=== PATIENT | male | born 1945 | race Caucasian/White ===

== ENCOUNTER 2023-02-15 17:29 | Emergency (ER) | payer MEDICARE ==
[~2023-02-15] VITALS: Ht 177.8 cm; Wt 59.0 kg
[~2023-02-15 17:29] MED LIST: ASPI325; Lisinopril2.5 MG; METO50ER; SIMV10; [UNRECOGNIZED DRUG - REMARK]
[2023-02-15 18:16] LABS: BASOPHILS ABSOLUTE AUTO 0.04 K/mm3 (0.00-0.23); BASOPHILS PERCENT AUTO 1 % (0-2); EOSINOPHILS ABSOLUTE AUTO 0.09 K/mm3 (0.00-0.68); EOSINOPHILS PERCENT AUTO 2 % (0-6); Hematocrit 37.1 % (37.0-53.0); Hemoglobin 12.7 g/dL (13.5-17.5); IMMATURE GRAN ABSOLUTE AUTO 0.01 K/mm3 (0.00-0.10); IMMATURE GRAN PERCENT AUTO 0 % (0-1); LYMPHOCYTES ABSOLUTE AUTO 1.86 K/mm3 (0.84-5.20); LYMPHOCYTES PERCENT AUTO 31 % (21-46); MONOCYTES ABSOLUTE AUTO 0.92 K/mm3 (0.16-1.47); MONOCYTES PERCENT AUTO 15 % (4-13); Mean Corpuscular HGB 33.3 pg (26.0-34.0); Mean Corpuscular HGB Conc 34.2 g/dL (31.5-36.5); Mean Corpuscular Volume 97 fL (80-100); Mean Platelet Volume 10.3 fL (9.1-12.4); NEUTROPHILS ABSOLUTE AUTO 3.06 K/mm3 (1.96-9.15); NEUTROPHILS PERCENT AUTO 51 % (41-73); Platelet Count 282 K/mm3 (150-400); RDW Coefficient Variation 11.9 % (11.7-14.2); RDW Standard Deviation 42.4 fL (35.1-46.3); Red Blood Cell Count 3.81 M/mm3 (4.30-5.90); White Blood Cell Count 5.98 K/mm3 (4.00-11.30)
[2023-02-15 18:28] LABS: Albumin, Blood 3.2 g/dL (3.4-5.0); Albumin/Globulin Ratio 0.7 (0.8-1.8); Bilirubin, Total 0.3 mg/dL (0.1-1.0); Bun/Creatinine Ratio 18.6 (12.0-20.0); Calcium, Blood 8.8 mg/dL (8.5-10.1); Creatinine, Blood 1.29 mg/dL (0.60-1.20); Globulin, Blood 4.3 g/dL (2.2-4.0); Potassium, Blood 4.6 mmol/L (3.5-5.5); Total Protein, Blood 7.5 g/dL (6.4-8.2)
[2023-02-15] MEDS ORDERED: COMBIVENT RESPIM4 G1 INH (18:51)
== END 2023-02-15 19:29 | disposition home or self-care (01) ==
LOC: ER 17:29
PROVIDERS: Emergency Medicine
DX: J44.9 Chronic obstructive pulmonary disease, unspecified (principal); J06.9 Acute upper respiratory infection, unspecified; Z85.118 Personal history of other malignant neoplasm of bronchus and lung; Z90.2 Acquired absence of lung [part of]; Z88.0 Allergy status to penicillin; Z79.899 Other long term (current) drug therapy; Z79.82 Long term (current) use of aspirin; Z87.891 Personal history of nicotine dependence
CPT/HCPCS: 71045; 80053; 84484; 85025; 93005; 93010; 99284-25

== ENCOUNTER → 2023-08-27 | Outpatient (CLI) | payer MEDICARE ==
[~2023-08-27] MED LIST changes: +COMBIVENT RESPIM4 G1 INH
[2023-08-27 18:51] LABS: BASOPHILS ABSOLUTE AUTO 0.04 K/mm3 (0.00-0.23); BASOPHILS PERCENT AUTO 1 % (0-2); EOSINOPHILS ABSOLUTE AUTO 0.12 K/mm3 (0.00-0.68); EOSINOPHILS PERCENT AUTO 3 % (0-6); Hematocrit 38.2 % (37.0-53.0); Hemoglobin 13.2 g/dL (13.5-17.5); IMMATURE GRAN ABSOLUTE AUTO 0.01 K/mm3 (0.00-0.10); IMMATURE GRAN PERCENT AUTO 0 % (0-1); LYMPHOCYTES ABSOLUTE AUTO 1.27 K/mm3 (0.84-5.20); LYMPHOCYTES PERCENT AUTO 29 % (21-46); MONOCYTES ABSOLUTE AUTO 0.66 K/mm3 (0.16-1.47); MONOCYTES PERCENT AUTO 15 % (4-13); Mean Corpuscular HGB 34.5 pg (26.0-34.0); Mean Corpuscular HGB Conc 34.6 g/dL (31.5-36.5); Mean Corpuscular Volume 100 fL (80-100); Mean Platelet Volume 11.6 fL (9.1-12.4); NEUTROPHILS ABSOLUTE AUTO 2.24 K/mm3 (1.96-9.15); NEUTROPHILS PERCENT AUTO 52 % (41-73); Platelet Count 174 K/mm3 (150-400); RDW Coefficient Variation 11.8 % (11.7-14.2); Red Blood Cell Count 3.83 M/mm3 (4.30-5.90); White Blood Cell Count 4.34 K/mm3 (4.00-11.30)
[2023-08-27 19:55] LABS: Alanine Aminotransfer (ALT/SGP 28 U/L (12-78); Albumin, Blood 3.9 g/dL (3.4-5.0); Alk Phos 70 U/L (50-136); Anion Gap 4 mmol/L (6-16); Aspartate Aminotrans (AST/SGOT 20 U/L (12-37); Bilirubin, Total 0.6 mg/dL (0.1-1.0); Blood Urea Nitrogen 13 mg/dL (8-24); CHOL/HDL RATIO 2.1; CO2, Blood 30 mmol/L (21-32); Calcium, Blood 9.2 mg/dL (8.5-10.1); Chloride, Blood 104 mmol/L (98-108); Cholesterol 125 mg/dL (50-200); Globulin, Blood 3.9 g/dL (2.2-4.0); Glucose, Blood 96 mg/dL (70-99); HDL Cholesterol 59 mg/dL (>39); LDL/HDL RATIO 0.8; Low Density Lipoprotein Chol 50 mg/dL (0-110); Potassium, Blood 4.3 mmol/L (3.5-5.5); Sodium, Blood 138 mmol/L (136-145); Total Protein, Blood 7.8 g/dL (6.4-8.2); Triglycerides 80 mg/dL (30-160); Very Low Density Lipoprot Chol 16 mg/dL (6-32)
[2023-08-27 20:05] LABS: Bun/Creatinine Ratio 10.2 (12.0-20.0); Creatinine, Blood 1.27 mg/dL (0.60-1.20); Glomerular Filtration Rate 59 (60-)
== END ==
LOC: LAB SHORT 16:45 → LAB EV 16:45
PROVIDERS: Student in an Organized Health Care Education/Training Program
DX: E78.5 Hyperlipidemia, unspecified (principal); B35.1 Tinea unguium; E03.9 Hypothyroidism, unspecified
CPT/HCPCS: 80053; 80061; 84443; 85025

== ENCOUNTER 2025-04-19 17:07 | Inpatient (IN) | payer MEDICARE ==
[~2025-04-19] VITALS: Ht 177.8 cm; Wt 60.5 kg
[2025-04-19] MEDS ORDERED: NS 1,000 ML IV SCH (17:25)
[2025-04-19 17:58] LABS: BASOPHILS ABSOLUTE AUTO 0.03 K/mm3 (0.00-0.23); BASOPHILS PERCENT AUTO 1 % (0-2); EOSINOPHILS ABSOLUTE AUTO 0.08 K/mm3 (0.00-0.68); EOSINOPHILS PERCENT AUTO 1 % (0-6); Hematocrit 39.8 % (37.0-53.0); Hemoglobin 14.1 g/dL (13.5-17.5); IMMATURE GRAN ABSOLUTE AUTO 0.01 K/mm3 (0.00-0.10); IMMATURE GRAN PERCENT AUTO 0 % (0-1); LYMPHOCYTES ABSOLUTE AUTO 0.68 K/mm3 (0.84-5.20); LYMPHOCYTES PERCENT AUTO 11 % (21-46); MONOCYTES ABSOLUTE AUTO 0.83 K/mm3 (0.16-1.47); MONOCYTES PERCENT AUTO 14 % (4-13); Mean Corpuscular HGB 34.7 pg (26.0-34.0); Mean Corpuscular HGB Conc 35.4 g/dL (31.5-36.5); Mean Corpuscular Volume 98 fL (80-100); Mean Platelet Volume 10.6 fL (9.1-12.4); NEUTROPHILS ABSOLUTE AUTO 4.53 K/mm3 (1.96-9.15); NEUTROPHILS PERCENT AUTO 74 % (41-73); Platelet Count 205 K/mm3 (150-400); RDW Coefficient Variation 11.9 % (11.7-14.2); RDW Standard Deviation 43.1 fL (35.1-46.3); Red Blood Cell Count 4.06 M/mm3 (4.30-5.90); White Blood Cell Count 6.16 K/mm3 (4.00-11.30)
[2025-04-19 18:22] LABS: Ethanol (Alcohol), Blood, Med <3 mg/dL; Free Thyroxine 0.96 ng/dL (0.70-1.60)
[2025-04-19 18:28] LABS: International Normalized Ratio 1.04; Prothrombin Time Results 11.4 Sec (9.7-11.5)
[2025-04-19 18:31] LABS: Alanine Aminotransfer (ALT/SGP 23 U/L (12-78); Alk Phos 95 U/L (50-136); Anion Gap 9 mmol/L (3-11); Aspartate Aminotrans (AST/SGOT 22 U/L (12-37); Blood Urea Nitrogen 9 mg/dL (8-24); Bun/Creatinine Ratio 5.8 (12.0-20.0); CO2, Blood 26 mmol/L (21-32); Calcium, Blood 9.4 mg/dL (8.5-10.1); Chloride, Blood 103 mmol/L (98-108); Creatinine, Blood 1.54 mg/dL (0.60-1.20); Glomerular Filtration Rate 46 (60-); Glucose, Blood 131 mg/dL (70-99); Sodium, Blood 134 mmol/L (136-145)
[2025-04-19 18:32] LABS: Acetaminophen, Random <2.0 ug/mL (10.0-30.0)
[2025-04-19] MEDS ORDERED: Atorvastatin 40 MG Tab PO SCH (20:16)
[2025-04-19 22:03] VITALS: BP 144/82
[2025-04-19 22:47] LABS: CHOL/HDL RATIO 3.3; Cholesterol 196 mg/dL (50-200); HDL Cholesterol 59 mg/dL (>39); LDL/HDL RATIO 1.9; Low Density Lipoprotein Chol 112 mg/dL (0-110); Triglycerides 123 mg/dL (30-160); Very Low Density Lipoprot Chol 24 mg/dL (6-32)
--- NOTE | 2025-04-20 00:44 | NUR ---
REPORT RECEIVED FROM PRE BILLING SPECIALIST FAINA. PT ARRIVED TO THE MEDICAL FLOOR AT 2200. PT TRANSFERRED INDEPENDENTLY FROM A W/C TO THE HOSPITAL BED. PT BROUGHT ALL HIS BELONINGS WITH HIM. PT IS A/O X4, EXPERIENCING AUDITORY HALLUCINATIONS, RUMINATING ON "WHAT HAPPEN TO MY NIECE, I AM WORRIED ABOUT MY NIECE", PER PT STATEMENTS. REORIENTED UNSUCCESSFULLY. PT IS ABLE TO MAKE HIS NEEDS KNOWN AND COOPERATIVE WITH CARE. TELE SINUS TACH 105, DENIES CP/PRESSURE. SNACK PROVIDED, INTAKE 100%. PT AWAKE @0050. DENIES A NEED FOR MELATONIN OR SLEEP AID. C/O NOT BEING ABLE TO GET SLEEP. APPEARS WORRYING. BED AT THE LOWEST POSITION, CALL LIGHT W/I REACH. PLAN IS FOR MRI AND ECHO TODAY.
[2025-04-20] MEDS ORDERED: Lactated Ringer's 1,000 ML IV SCH (01:10)
[2025-04-20 04:39] VITALS: BP 121/75
[2025-04-20 05:08] LABS: BASOPHILS ABSOLUTE AUTO 0.04 K/mm3 (0.00-0.23); BASOPHILS PERCENT AUTO 1 % (0-2); EOSINOPHILS ABSOLUTE AUTO 0.12 K/mm3 (0.00-0.68); EOSINOPHILS PERCENT AUTO 2 % (0-6); Hematocrit 31.8 % (37.0-53.0); Hemoglobin 11.3 g/dL (13.5-17.5); IMMATURE GRAN ABSOLUTE AUTO 0.02 K/mm3 (0.00-0.10); IMMATURE GRAN PERCENT AUTO 0 % (0-1); LYMPHOCYTES ABSOLUTE AUTO 1.25 K/mm3 (0.84-5.20); LYMPHOCYTES PERCENT AUTO 25 % (21-46); MONOCYTES ABSOLUTE AUTO 0.76 K/mm3 (0.16-1.47); MONOCYTES PERCENT AUTO 15 % (4-13); Mean Corpuscular HGB 34.5 pg (26.0-34.0); Mean Corpuscular HGB Conc 35.5 g/dL (31.5-36.5); Mean Corpuscular Volume 97 fL (80-100); Mean Platelet Volume 10.4 fL (9.1-12.4); NEUTROPHILS ABSOLUTE AUTO 2.84 K/mm3 (1.96-9.15); NEUTROPHILS PERCENT AUTO 56 % (41-73); Platelet Count 143 K/mm3 (150-400); RDW Coefficient Variation 11.9 % (11.7-14.2); Red Blood Cell Count 3.28 M/mm3 (4.30-5.90); White Blood Cell Count 5.03 K/mm3 (4.00-11.30)
[2025-04-20 05:58] LABS: Albumin, Blood 3.2 g/dL (3.4-5.0); Albumin/Globulin Ratio 1.1 (0.8-1.8); Bilirubin, Total 0.8 mg/dL (0.1-1.0); Calcium, Blood 8.6 mg/dL (8.5-10.1); Creatinine, Blood 1.2 mg/dL (0.60-1.20); Globulin, Blood 2.9 g/dL (2.2-4.0); Potassium, Blood 3.8 mmol/L (3.5-5.5); Total Protein, Blood 6.1 g/dL (6.4-8.2)
[2025-04-20 08:06] VITALS: BP 147/70
[2025-04-20 13:34] VITALS: BP 138/73
[2025-04-20] MEDS ORDERED: LORazepam 2 MG/ML 1ML Injection IV PRN (14:50)
--- NOTE | 2025-04-20 15:49 | NUR ---
SHIFT SUMMARY/RN NOTE MR SKAGGS IS ORIENTATED TO SELF, TO [facility], UNABLE TO TELL ME THE MONTH OR THE YEAR AND VAGUE ABOUT THE REASON FOR BEING IN THE HOSPITAL. HE SAID THAT THE DEMONS ARE REAL, THAT HE IS SPIRITUAL. HE SAID THAT THE DEMONS HAVE BEEN TALKING TO HIM FOR A LONG TIME, YEARS? 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 ABLE TO STAND AND WALK TO THE BATHROOM WITH STEADY GAIT. HE SAID THAT HE HAS THINGS TO DO AND WANTS TO LEAVE THE HOSPITAL. HE IS NOT SPECIFIC ABOUT WHAT HE WANTS TO DO. HE GOT THE MRI AND ECHO DONE TODAY. MR HAMM' DESIRE TO LEAVE THE HOSPITAL WAS RELAYED TO DR POLLARD AND A CONSULT FOR DR CHAVEZ (PSYCHIATRY) WAS ENTERED. DR CHAVEZ CAME TO THE BEDSIDE TO ASSESS MR SKAGGS. MR SKAGGS HAS AGREED TO STAY FOR THIS DURATION BUT CONTINUES TO SAY HE HAS PLACES TO GO. HIS NEICE THOMAS CAME TO THE BEDSIDE BUT HAS SINCE LEFT. HIS SISTER RICH CALLED FROM [place] AND RELAYED THAT HE HAS BEEN CONVERSING WITH DEMKEVIN FOR "YEARS". MR SKAGGS IS NOT TAKING ANY MEDICATIONS. HE SAID THAT HE STOPPED SOME TIME AGO THOUGHT THAT THEY WERE MAKING HIM FEEL BAD. ON TELEMETRY SR, BBB, NO CALLS FROM [employer].
[2025-04-20] MEDS ORDERED: Clopidogrel Bisulfate 75 MG Tab PO SCH (16:00)
[2025-04-20 16:29] VITALS: BP 129/68
[2025-04-20 19:22] VITALS: BP 134/76
[2025-04-20] MEDS ORDERED: RisperiDONE 1 MG Tab PO SCH (21:00)
[2025-04-20 23:49] VITALS: BP 140/73
[2025-04-21 03:51] VITALS: BP 119/72
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
[2025-04-21 08:00] VITALS: BP 156/86
[2025-04-21] MEDS ORDERED: Losartan Potassium 25 MG Tab PO SCH (09:00)
[2025-04-21] MEDS ORDERED: Aspirin 81 MG Chew PO SCH ×2 (09:00)
[2025-04-21] MEDS ORDERED: CLOP75 PO (12:18)
[2025-04-21] MEDS ORDERED: ATOR40TA PO (12:18)
[2025-04-21] MEDS ORDERED: RISP.5 PO (12:19)
[2025-04-21] MEDS ORDERED: LOSA25 PO (12:19)
--- NOTE | 2025-04-21 13:06 | NUR ---
DISCHARGE SUMMARY PT DISCHARGED HOME - PROVIDER DISCUSSED WITH PT AND PT FAMILY/POA RICH WHO AGREED TO DISCHARGE PT HOME. NEW RX FAXED TO PHARMACY. 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 REVIEWED DISCHARGE PLAN WITH PT AND ONEIL. IV REMOVED AND SITE APPEARED WNL. TELE REMOVED - CLEANED AND SENT BACK TO PCU. PT WHEELED DOWN IN WC BY KARY TO PRIVATE VEHICLE OPERATED BY ONEIL. PT DOES NOT KNOW WHERE WALLET AND KEYS ARE. THIS RN CONTACTED SECURITY - NOTHING IN SAFE. NO WALLET OR KEYS FOUND IN ROOM.
== END 2025-04-21 13:05 | disposition home or self-care (01) | DRG 65 ==
LOC: ER 17:07 → MEDS 17:08 → ENPENDDIS 04-21 12:24 → MEDS 04-21 13:05
PROVIDERS: Emergency Medicine; Family Medicine; ADMIT Internal Medicine
DX: I63.9 Cerebral infarction, unspecified (principal); F23 Brief psychotic disorder; I25.10 Atherosclerotic heart disease of native coronary artery without angina pectoris; Z66 Do not resuscitate; E03.9 Hypothyroidism, unspecified; G93.89 Other specified disorders of brain; Z79.890 Hormone replacement therapy; N18.9 Chronic kidney disease, unspecified; D72.810 Lymphocytopenia; Z90.2 Acquired absence of lung [part of]; Z85.118 Personal history of other malignant neoplasm of bronchus and lung; Z87.891 Personal history of nicotine dependence; Z88.0 Allergy status to penicillin; Z79.899 Other long term (current) drug therapy; Z79.02 Long term (current) use of antithrombotics/antiplatelets; Z79.82 Long term (current) use of aspirin; I25.2 Old myocardial infarction; R29.700 NIHSS score 0; Z85.850 Personal history of malignant neoplasm of thyroid
CPT/HCPCS: 36415; 70450; 70544; 71045; 80053; 80061; 80320; 84439; 84443; 84484; 85025; 85610; 85730; 93306; 96360; 96361; 99285-25; A9270; G0378; G0480; J7030; J7120

== ENCOUNTER 2025-06-12 14:49 | Emergency (ER) | payer MEDICARE ==
[~2025-06-12] VITALS: Ht 177.8 cm; Wt 59.0 kg
[~2025-06-12 14:49] MED LIST changes: +ATOR40TA PO; +CLOP75 PO; +LOSA25 PO; +RISP.5 PO
[2025-06-12 15:45] LABS: BASOPHILS ABSOLUTE AUTO 0.03 K/mm3 (0.00-0.23); BASOPHILS PERCENT AUTO 1 % (0-2); EOSINOPHILS ABSOLUTE AUTO 0.17 K/mm3 (0.00-0.68); EOSINOPHILS PERCENT AUTO 5 % (0-6); Hematocrit 37.7 % (37.0-53.0); Hemoglobin 13.5 g/dL (13.5-17.5); IMMATURE GRAN ABSOLUTE AUTO 0.01 K/mm3 (0.00-0.10); IMMATURE GRAN PERCENT AUTO 0 % (0-1); LYMPHOCYTES ABSOLUTE AUTO 0.95 K/mm3 (0.84-5.20); LYMPHOCYTES PERCENT AUTO 26 % (21-46); MONOCYTES ABSOLUTE AUTO 0.67 K/mm3 (0.16-1.47); MONOCYTES PERCENT AUTO 18 % (4-13); Mean Corpuscular HGB Conc 35.8 g/dL (31.5-36.5); Mean Corpuscular Volume 97 fL (80-100); NEUTROPHILS ABSOLUTE AUTO 1.84 K/mm3 (1.96-9.15); NEUTROPHILS PERCENT AUTO 50 % (41-73); NRBC ABSOLUTE 0.00 K/mm3 (0.00-0.02); NRBC Auto 0.0 /100 WBC (0.0-0.2); Platelet Count 140 K/mm3 (150-400); RDW Coefficient Variation 11.7 % (11.7-14.2); RDW Standard Deviation 41.3 fL (35.1-46.3)
[2025-06-12 16:21] LABS: Alanine Aminotransfer (ALT/SGP 52.0 U/L (12-78); Albumin, Blood 3.4 g/dL (3.4-5.0); Albumin/Globulin Ratio 1.0 (0.8-1.8); Anion Gap 5.0 mmol/L (3-11); Aspartate Aminotrans (AST/SGOT 47.0 U/L (12-37); Bilirubin, Total 0.9 mg/dL (0.1-1.0); Blood Urea Nitrogen 11.0 mg/dL (8-24); CO2, Blood 29.0 mmol/L (21-32); Calcium, Blood 8.7 mg/dL (8.5-10.1); Chloride, Blood 103.0 mmol/L (98-108); Creatinine, Blood 0.95 mg/dL (0.60-1.20); Globulin, Blood 3.4 g/dL (2.2-4.0); Glucose, Blood 106.0 mg/dL (70-99); Potassium, Blood 3.8 mmol/L (3.5-5.5); Sodium, Blood 133.0 mmol/L (136-145); Total Protein, Blood 6.8 g/dL (6.4-8.2)
[2025-06-12 16:23] LABS: Influenza A, PCR NEGATIVE (NEGATIVE); Influenza B, PCR NEGATIVE (NEGATIVE); Resp Syncytial Virus, PCR NEGATIVE (NEGATIVE); SARS-Cov-2 (COVID-19) PCR, MMC NEGATIVE (NEGATIVE)
[2025-06-12 20:20] LABS: Thyroid Stimulating Hormone 4.39 uIU/mL (0.360-4.800)
[2025-06-13 09:00] VITALS: BP 106/86
== END 2025-06-13 09:56 | disposition home or self-care (01) ==
LOC: ER 14:49
PROVIDERS: Emergency Medicine; Student in an Organized Health Care Education/Training Program
DX: R06.02 Shortness of breath (principal); E46 Unspecified protein-calorie malnutrition; R53.1 Weakness; I25.10 Atherosclerotic heart disease of native coronary artery without angina pectoris; E03.9 Hypothyroidism, unspecified; Z68.1 Body mass index [BMI] 19.9 or less, adult; Z78.1 Physical restraint status; Z87.891 Personal history of nicotine dependence; Z90.2 Acquired absence of lung [part of]; Z85.118 Personal history of other malignant neoplasm of bronchus and lung; Z86.73 Personal history of transient ischemic attack (TIA), and cerebral infarction without residual deficits; Z88.0 Allergy status to penicillin; Z79.02 Long term (current) use of antithrombotics/antiplatelets; Z79.899 Other long term (current) drug therapy
CPT/HCPCS: 71046; 80053; 83880; 84439; 84443; 84484; 85025; 87637; 93005; 93010; 99285-25

== ENCOUNTER 2025-09-13 22:13 | Inpatient (IN) | payer MEDICARE ==
[~2025-09-13] VITALS: Ht 172.7 cm; Wt 49.5 kg
[2025-09-13] MEDS ORDERED: NS 1,000 ML IV ONE (22:27)
[2025-09-13 22:45] LABS: BASOPHILS ABSOLUTE AUTO 0.01 K/mm3 (0.00-0.23); BASOPHILS PERCENT AUTO 0 % (0-2); EOSINOPHILS ABSOLUTE AUTO 0.00 K/mm3 (0.00-0.68); EOSINOPHILS PERCENT AUTO 0 % (0-6); Hematocrit 20.8 % (37.0-53.0); Hemoglobin 7.2 g/dL (13.5-17.5); IMMATURE GRAN ABSOLUTE AUTO 0.04 K/mm3 (0.00-0.10); IMMATURE GRAN PERCENT AUTO 0 % (0-1); LYMPHOCYTES ABSOLUTE AUTO 0.14 K/mm3 (0.84-5.20); LYMPHOCYTES PERCENT AUTO 2 % (21-46); MONOCYTES ABSOLUTE AUTO 0.73 K/mm3 (0.16-1.47); MONOCYTES PERCENT AUTO 8 % (4-13); Mean Corpuscular HGB Conc 34.6 g/dL (31.5-36.5); Mean Corpuscular Volume 103 fL (80-100); NEUTROPHILS ABSOLUTE AUTO 8.08 K/mm3 (1.96-9.15); NEUTROPHILS PERCENT AUTO 90 % (41-73); NRBC ABSOLUTE 0.00 K/mm3 (0.00-0.02); NRBC Auto 0.0 /100 WBC (0.0-0.2); Platelet Count 91 K/mm3 (150-400); RDW Coefficient Variation 12.2 % (11.7-14.2); RDW Standard Deviation 45.7 fL (35.1-46.3)
[2025-09-13 22:51] LABS: Source, Urine Clean Catch
[2025-09-13 23:07] LABS: Bilirubin, Urine Neg (Neg); Glucose Qualitative, Urine Neg (Neg); Ketones, Urine Neg (Neg); Leukocyte Esterase, Urine 1+ (Neg); Protein, Urine 2+ (Neg); Specific Gravity, Urine 1.015 (1.003-1.022); Urobilinogen, Urine NORM (Normal)
[2025-09-13 23:20] LABS: Color, Urine Yellow (P-Yellow)
[2025-09-13 23:24] LABS: Influenza A, PCR NEGATIVE (NEGATIVE); Influenza B, PCR NEGATIVE (NEGATIVE); Resp Syncytial Virus, PCR NEGATIVE (NEGATIVE); SARS-Cov-2 (COVID-19) PCR, MMC NEGATIVE (NEGATIVE)
[2025-09-13 23:25] LABS: BASOPHILS ABSOLUTE AUTO 0.02 K/mm3 (0.00-0.23); BASOPHILS PERCENT AUTO 0 % (0-2); EOSINOPHILS ABSOLUTE AUTO 0.00 K/mm3 (0.00-0.68); EOSINOPHILS PERCENT AUTO 0 % (0-6); Hematocrit 28.9 % (37.0-53.0); Hemoglobin 10.2 g/dL (13.5-17.5); IMMATURE GRAN ABSOLUTE AUTO 0.05 K/mm3 (0.00-0.10); IMMATURE GRAN PERCENT AUTO 0 % (0-1); LYMPHOCYTES ABSOLUTE AUTO 0.21 K/mm3 (0.84-5.20); LYMPHOCYTES PERCENT AUTO 2 % (21-46); MONOCYTES ABSOLUTE AUTO 0.85 K/mm3 (0.16-1.47); MONOCYTES PERCENT AUTO 7 % (4-13); Mean Corpuscular HGB Conc 35.3 g/dL (31.5-36.5); Mean Corpuscular Volume 100 fL (80-100); NEUTROPHILS ABSOLUTE AUTO 11.93 K/mm3 (1.96-9.15); NEUTROPHILS PERCENT AUTO 91 % (41-73); NRBC ABSOLUTE 0.00 K/mm3 (0.00-0.02); NRBC Auto 0.0 /100 WBC (0.0-0.2); Platelet Count 115 K/mm3 (150-400); RDW Coefficient Variation 12.3 % (11.7-14.2); RDW Standard Deviation 45.2 fL (35.1-46.3)
[2025-09-13 23:27] LABS: U Amphetamine Screen Not Detected; U Barbiturate Screen Not Detected; U Benzodiazapine Screen Not Detected; U Buprenorphine Screen Not Detected; U Cannabinoids Screen Not Detected; U Cocaine Screen Not Detected; U Methadone Screen Not Detected; U Methamphetamine Screen Not Detected; U Opiates Screen Not Detected; U Oxycodone Screen Not Detected; U Phencyclidine Screen Not Detected
[2025-09-13] MEDS ORDERED: CefTRIAXone Sodium 1,000 MG in NS 100 ML IV ONE (23:40)
[2025-09-13] MEDS ORDERED: NS 1,000 ML IV SCH (23:45)
[2025-09-13 23:48] LABS: Magnesium, Blood 1.6 mg/dL (1.6-2.4)
[2025-09-13 23:55] LABS: Alanine Aminotransfer (ALT/SGP 14 U/L (12-78); Albumin, Blood 1.4 g/dL (3.4-5.0); Albumin/Globulin Ratio 0.8 (0.8-1.8); Anion Gap 9 mmol/L (3-11); Aspartate Aminotrans (AST/SGOT 13 U/L (12-37); Bilirubin, Total 0.6 mg/dL (0.1-1.0); Blood Urea Nitrogen 16 mg/dL (8-24); CO2, Blood 16 mmol/L (21-32); Calcium, Blood <5.0 mg/dL (8.5-10.1); Chloride, Blood 122 mmol/L (98-108); Creatinine, Blood 0.71 mg/dL (0.60-1.20); Globulin, Blood 1.8 g/dL (2.2-4.0); Glucose, Blood 56 mg/dL (70-99); Magnesium, Blood 1.0 mg/dL (1.6-2.4); Potassium, Blood 2.6 mmol/L (3.5-5.5); Sodium, Blood 144 mmol/L (136-145); Total Protein, Blood 3.2 g/dL (6.4-8.2)
[2025-09-14] VITALS (59 sets, daily range): BP systolic 74–141; BP diastolic 22–87
[2025-09-14] LABS: Alanine Aminotransfer (ALT/SGP 25.0 U/L (12-78); Albumin, Blood 2.3 g/dL (3.4-5.0); Albumin/Globulin Ratio 0.8 (0.8-1.8); Anion Gap 11.0 mmol/L (3-11); Aspartate Aminotrans (AST/SGOT 20.0 U/L (12-37); Bilirubin, Total 0.7 mg/dL (0.1-1.0); Blood Urea Nitrogen 24.0 mg/dL (8-24); CO2, Blood 23.0 mmol/L (21-32); Calcium, Blood 7.9 mg/dL (8.5-10.1); Chloride, Blood 108.0 mmol/L (98-108); Creatinine, Blood 1.25 mg/dL (0.60-1.20); Globulin, Blood 3.0 g/dL (2.2-4.0); Glucose, Blood 81.0 mg/dL (70-99); Potassium, Blood 4.3 mmol/L (3.5-5.5); Sodium, Blood 138.0 mmol/L (136-145); Total Protein, Blood 5.3 g/dL (6.4-8.2)
[2025-09-14] MEDS ORDERED: Ondansetron HCl 2 MG / ML 2ML Vial IV PRN (00:35)
[2025-09-14] MEDS ORDERED: Vancomycin (Pharmacy Consult) IV SCH (00:35)
[2025-09-14] MEDS ORDERED: NS 1,000 ML IV ONE (00:35)
[2025-09-14] MEDS ORDERED: FLU VACC TS2025(65UP)/MF59C/PF 45 MCG/0.5 ML SYRINGE IM ONE (00:40)
[2025-09-14] MEDS ORDERED: Cefepime HCl 1,000 MG in NS 100 ML IV SCH (00:48)
[2025-09-14] MEDS ORDERED: Albumin (Human) 25gm/100ml 100 ML IV ONE (01:50)
[2025-09-14 03:47] LABS: BASOPHILS ABSOLUTE AUTO 0.01 K/mm3 (0.00-0.23); BASOPHILS PERCENT AUTO 0 % (0-2); EOSINOPHILS ABSOLUTE AUTO 0.00 K/mm3 (0.00-0.68); EOSINOPHILS PERCENT AUTO 0 % (0-6); Hematocrit 22.4 % (37.0-53.0); Hemoglobin 7.7 g/dL (13.5-17.5); IMMATURE GRAN ABSOLUTE AUTO 0.06 K/mm3 (0.00-0.10); IMMATURE GRAN PERCENT AUTO 1 % (0-1); LYMPHOCYTES ABSOLUTE AUTO 0.55 K/mm3 (0.84-5.20); LYMPHOCYTES PERCENT AUTO 5 % (21-46); MONOCYTES ABSOLUTE AUTO 0.71 K/mm3 (0.16-1.47); MONOCYTES PERCENT AUTO 6 % (4-13); Mean Corpuscular HGB Conc 34.4 g/dL (31.5-36.5); Mean Corpuscular Volume 104 fL (80-100); NEUTROPHILS ABSOLUTE AUTO 10.12 K/mm3 (1.96-9.15); NEUTROPHILS PERCENT AUTO 88 % (41-73); NRBC ABSOLUTE 0.00 K/mm3 (0.00-0.02); NRBC Auto 0.0 /100 WBC (0.0-0.2); Platelet Count 94 K/mm3 (150-400); RDW Coefficient Variation 12.3 % (11.7-14.2); RDW Standard Deviation 46.6 fL (35.1-46.3)
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
[2025-09-14 04:35] LABS: Alanine Aminotransfer (ALT/SGP 17.0 U/L (12-78); Albumin, Blood 2.0 g/dL (3.4-5.0); Albumin/Globulin Ratio 1.1 (0.8-1.8); Anion Gap 11.0 mmol/L (3-11); Aspartate Aminotrans (AST/SGOT 15.0 U/L (12-37); Bilirubin, Total 1.3 mg/dL (0.1-1.0); Blood Urea Nitrogen 17.0 mg/dL (8-24); CO2, Blood 16.0 mmol/L (21-32); Chloride, Blood 119.0 mmol/L (98-108); Creatinine, Blood 0.73 mg/dL (0.60-1.20); Globulin, Blood 1.9 g/dL (2.2-4.0); Glucose, Blood 71.0 mg/dL (70-99); Potassium, Blood 2.9 mmol/L (3.5-5.5); Sodium, Blood 143.0 mmol/L (136-145); Total Protein, Blood 3.9 g/dL (6.4-8.2)
[2025-09-14 04:37] LABS: Calcium, Blood 5.4 mg/dL (8.5-10.1)
[2025-09-14] MEDS ORDERED: Calcium Gluconate 10% 1,000 MG in NS 50 ML IV ONE (04:50)
--- NOTE | 2025-09-14 06:07 | NUR ---
SHIFT SUMM: PT WAS AN ADMIT FROM ER THIS SHIFT AND CONTINUES TO HAVE LEVO INFUSING AT 2MCG/MIN (SEE FLOWSHEET).PT IS A&O TO SELF AND ABLE TO FOLLOW COMMANDS BUT DOES NOT KNOW FULL NAME OR THE YEAR WHEN ASKED BUT DOES KNOW HES IN THE HOSPITAL. PT CURRENTLY ON 4L NC AND SPO2 >98%. MAINTAINING MAPS >65 SBP'S 120'S-130'S.PT HAS PATENT TEMP ODELL DRAINING TO GRAVITY WITH CHRIS COLORED URINE IN BAG. PT HAS PATENT RFA,LFA AND LAC PIV'S. PT HAS RECIEVED IV CALCIUM AND POTASSIUM (SEE EMAR). PT HAS PREVENATIVE HEEL PROTECTORS PLACED ON HEELS AND A MEPILEX TO THE SACRUM FOR A PRESSURE WOUND. PT HAS CALL LIGHT IN REACH AND BED LOW AND LOCKED FOR SAFETY.
[2025-09-14] MEDS ORDERED: Magnesium Sulf 2 GM/Water 50ML 50 ML IV ONE (06:40)
[2025-09-14] MEDS ORDERED: Enoxaparin 40 MG/0.4 ML SYR SC SCH (09:00)
[2025-09-14 11:01] LABS: Anion Gap 10.0 mmol/L (3-11); Blood Urea Nitrogen 24.0 mg/dL (8-24); CO2, Blood 24.0 mmol/L (21-32); Calcium, Blood 8.4 mg/dL (8.5-10.1); Chloride, Blood 110.0 mmol/L (98-108); Creatinine, Blood 0.93 mg/dL (0.60-1.20); Glucose, Blood 90.0 mg/dL (70-99); Potassium, Blood 4.8 mmol/L (3.5-5.5); Sodium, Blood 139.0 mmol/L (136-145)
--- NOTE | 2025-09-14 13:21 | NUR ---
Spiritual care Visit. Pt. is awake in bed when he welcomes my visit. Pt. is pleasant, but does display evidence of some confusioin. Pt. verbalizes that since his stroke he hasn't been doing well. Considered matters of rich and belief. Pt. verbalizes the importance of his christian family but welcomed prayer. Took pts. hand and prayed for the Pt. Will remain available to the pt.
[2025-09-14 13:43] LABS: Vancomycin, Random 13.0 ug/mL
--- NOTE | 2025-09-14 15:38 | NUR ---
Pt transitioning to comfort care. Met with patient and Pinky. They are in agreement with no Peg tube, no further escalation of care. They've chosen comfort care with d/c home with hospice. The pt's sister tells this PC RN his niece Anabell lives on the property, that pt has 40 cats that live in the garage and don't go into the home. Pinky states anabel Hung threatens to kill herself "all the time and states if pt dies, she'll kill herself and let the cats take care of it." Physician and CM notified. Unsure if the environment is safe for him. Will continue to monitor.
[2025-09-14] MEDS ORDERED: Atropine Sulfate 1% Opth Soln 2ML BTL SL PRN (16:00)
[2025-09-14] MEDS ORDERED: Morphine Sulfate 20 MG/1ML 1 ML Oral Syringe SL PRN (16:00)
--- NOTE | 2025-09-14 17:14 | NUR ---
SHIFT SUMMARY PT HAS REMAINED ALERT WHEN AT BEDSIDE. PT ABLE TO ANSWER SOME QUESTIONS APPROPRIATELY, BUT OTHERWISE REMAINS CONFUSED THROUGHOUT THE DAY. PT SISTER RICH AT BEDSIDE THIS AFTERNOON AND DISCUSSED GOALS OF CARE WITH PALLIATIVE CARE RN. DECISION MADE TO TRANSITION TO COMFORT CARE AT THIS TIME WITH GOAL TO GO HOME ON HOSPICE. IV MEDS DC'D AT THIS TIME. PT WITHOUT APPETITE THROUGHOUT THE SHIFT. ODELL TEMP PROBE REMAINS IN PLACE WITH DARK YELLOW URINE OUTPUT NOTED. PT DENIES PAIN OR DISCOMFORT AT THIS TIME. WILL CONTINUE TO MONITOR AND REPORT OFF TO ONCOMING RN.
--- NOTE | 2025-09-14 20:00 | NUR ---
ASSUMPTION OF CARE NOTE: PT IS CURRENTLY RELAXING IN BED AND HAS NO COMPLAINTS OF PAIN AT THIS TIME. PT IS A&O TO SELF ONLY. PT WAS ABLE TO TOLERATE SMALL SIPS OF WATER. CURRENTLY ON RA AND PATENT PIV TO RFA. PT ALSO HAS PATENT TEMP ODELL DRAINING TO GRAVITY WITH CHRIS URINE IN THE BAG. PT IS PLEASANTLY CONFUSED AND BEINF REPOSITIONED Q2 FOR COMFORT AND TO PREVENT FURTHER SKIN BREAKDOWN. HEEL PROTECTORS IN PLACE A PREVENATIVE MEASURE AND MEPILEX PLACED TO SACRUM FOR PRESSURE WOUND. CALL LIGHT IN REACH AND BED LOW AND LOCKED FOR SAFETY.
[2025-09-15] MEDS ORDERED: Pantoprazole Sodium 40 MG Injection IV SCH (06:00)
--- NOTE | 2025-09-15 06:26 | NUR ---
SHIFT SUMMARY: PT REMAINS ON COMFORT CARE MEASURES AND HAS BEEN REPOSITIONED Q2 TURNS TO PRESERVE INTEGRITY OF SKIN AND PREVENT FURTHER SKIN BREAKDOWN. PT HAS NOT BEEN IN PAIN THIS SHIFT AND HAS BEEN ABLE TO ANSWER YES AND NO QUESTIONS. PT IS STILL ONLY ORIENTED TO SELF. PT HAS PATENT PIV TO RFA AND PATENT TEMP ODELL DRAINING TO GRAVITY. PT CURRENTLY ON RA AND WAS ABLE TO TOLERATE SMALL SIPS OF WATER. CATH CARE COMPLETE WITH CATHETER WIPES. PT HAS CALL LIGHT IN REACH AND BED LOW AND LOCKED FOR SAFETY.
--- NOTE | 2025-09-15 10:17 | NUR ---
ASSUMED CARE OF PATIENT AT APPROXIMATELY 0700. REPORT RECEIVED FROM ARMINDA ROLLINS AND RIA NAYLOR. PT AWAKE, INTERACTING c STAFF APPROPRIATELY DURING BEDSIDE REPORT. CONTINUOUS CARDIAC MONITORING IN PLACE. ON RA. TEMP ODELL PATENT. NO ACUTE NEEDS IDENTIFIED AT THIS TIME. SEE SHIFT ASSESSMENT FOR FULL DETAILS.
--- NOTE | 2025-09-15 17:40 | NUR ---
SHIFT SUMMARY PT REMAINS ON COMFORT CARE, SLEPT THROUGHOUT MAJORITY OF THE SHIFT. DENIES PAIN/DISCOMFORT/SOB. REMAINS ON RA. REQUESTED ICED TEA THIS AM BUT ONLY CONSUMED APPROX. 100 mL, DECLINES FURTHER FOOD/DRINK. ODELL PATENT AND DRAINING TO GRAVITY. WILL CONTINUE TO MONITOR AND REPORT TO ONCOMING RN.
--- NOTE | 2025-09-16 05:42 | NUR ---
SHIFT SUMMARY PT ALERT/AWAKE PERIODICALLY T/O NIGHT, ORIENTED TO SELF, AND SITUATION, BUT NOT SURE OF CURRENT DATE. ABLE TO FOLLOW COMMANDS AND MAKE NEEDS KNOWN. ABLE TO ASSIST WITH TURNING Q2H AND PRN FOR COMFORT. OFFERED SNACKS AND FLUIDS WHEN AWAKE, ONLY INTERESTED IN OCCAS ICE WATER. DENIED PAIN OR DISCOMFORT T/O NIGHT AND DENIED NEED FOR COMFORT MEDS. WILL UPDATE DAY RN WITH ANY OUTSTANDING ISSUES AND PROBLEMS TO DATE.
--- NOTE | 2025-09-16 18:17 | NUR ---
SHIFT SUMMARY PT REMAINS A/0 X3 THROUGHOUT SHIFT, NOT ORIENTED TO DATE, ENDORSES INTERMITTENT BACK PAIN, MEDICATED PER MAR. APPETITE HAS BEEN FAIRLY POOR, VERY LITTLE PO FLUIDS INTAKE TODAY, WAS ABLE TO EAT TWO CHOCOLATE PUDDING CUPS DURING SHIFT. FAMILY AT BEDSIDE TODAY, FAMILY TO HAVE MEETING WITH PALLIATIVE CARE TEAM TOMORROW TO PLAN FOR DISCHARGE TO SISTER'S HOME WITH HOSPICE SERVICES. ODELL REMAINS IN PLACE, DRAINING CONCENTRATED YELLOW URINE TO GRAVITY. PT GIVEN BED BATH WITH LINEN AND GOWN CHANGE THIS AFTERNOON, WAS ABLET TO PRODUCE BM, ENDORSES STILL FEELING CONSTIPATED WITH ABD DISCOMFORT. DENIES UNMET NEEDS AT THIS TIME, CALL LIGHT WITHIN REACH.
--- NOTE | 2025-09-17 02:15 | NUR ---
TRANSFER NOTE REPORT CALLED TO RIA GARCIA, MEDICAL FLOOR FOR PT TRANSFER. REVIEWED ALL OUTSTANDING ISSUES AND PROBLEMS TO DATE. PT TRANSFERRED VIA BED TO 360 WITH CELL PHONE AND NO OTHER BELONGINGS.
--- NOTE | 2025-09-17 02:35 | NUR ---
TRANSFER NOTE PT TRANSFER FROM ICU 3. A&OX3, ABLE TO MAKE NEEDS KNOWN EFFECTIVELY. ODELL AND CALLUM WNL. ORIENTED TO ROOM, CALL LIGHT, AND SAFETY/FALL PRECAUTIONS. REMAINS ON COMFORT CARE. DENIES ANY NEEDS AT THIS TIME. BED RAILS UP X 2, BED IN LOWEST POSITION, BED WHEELS LOCKED, BED ALARM ON, PERSONAL BELONGINGS AND CALL LIGHT WITHIN REACH FOR SAFETY.
--- NOTE | 2025-09-17 05:43 | NUR ---
PREMIUM AUDITOR SUMMARY PT A&OX3. ABLE TO MAKE NEEDS KNOWN EFFECTIVELY. ON COMFORT CARE. NO ACUTE CHANGES SINCE TRANSFER TO UNIT. HAS BEEN ASLEEP FOR MOST OF THE SHIFT SINCE TRANSFER. CHEST RISE/RESPIRATIONS NOTED. ODELL REMAINS IN PLACE, DRAINING CLEAR, YELLOW URINE TO GRAVITY AND FREE OF KINKS/OBSTRUCTIONS. BED RAILS UP X 2, BED IN LOWEST POSITION, BED WHEELS LOCKED, BED ALARM ON, PERSONAL BELONGINGS AND CALL LIGHT WITHIN REACH FOR SAFETY.
--- NOTE | 2025-09-17 12:07 | NUR ---
COCCOYX WOUND ASSESSED AND REDRESSED. PRESSURE POINTS ON BILATERAL HIP DRESSED AND PATIENT FLOATED IN BED TO AVOID SKIN BREAKDOWN.
--- NOTE | 2025-09-17 16:47 | NUR ---
KARTHIK SIGNED AND PLACED IN PT CHART. PATIENT WAS RECIEVING BED BATH. DISCUSSED CASE WITH PROVIDER AND BSRN.
--- NOTE | 2025-09-17 17:24 | NUR ---
SHIFT SUMMARY- A&Ox3. PLEASANT AND COOPERATIVE WITH CARE. DID NOT USE CALL LIGHT ON THIS SHIFT BUT IS ABLE TO ADVOCATE FOR NEEDS WHEN HE IS ROUNDED ON. LUNG SOUNDS COURSE/CRACKLES ON THE RIGHT SIDE. LEFT SIDE SURGICALLY ABSENT. URINARY ODELL IN PLACE. NO BM ON THIS SHIFT. PATIENT IS ON PUREED DIET DUE TO CONCERN OF ASPIRATION. PATIENT DOES HAVE AN APPETITE AND WILL EAT A SMALL AMOUNT AT MEAL TIME. PATIENT IS A FALL RISK AND IS BEDREST. WOUND ON COCCOYX EXAMINED AND REDRESSED. PADS ADDED TO BILATERAL HIPS FOR SKIN BREAK DOWN PROTECTION. PATIENT WAS ABLE TO SWALLOW A PILL DURING THIS SHIFT. WOULD CONSIDER CRUSHING IF PILLS ARE STILL NEEDED. HCP STARTED ORAL ANTIBIOTIC TO TREAT PNEUMONIA. PATIENT IS UNABLE TO CLEAR SECRETES, SUCTION IS SET UP AND ORAL CARE WAS DONE TODAY. BED IN LOWEST POSITION, CALL LIGHT WITHIN REACH, ALL NEEDS MET. REPORT TO ONCOMING NURSE.
--- NOTE | 2025-09-18 05:03 | NUR ---
SHIFT SUMMARY PATIENT ADMITTED FOR SEPTIC SHOCK. PATIENT IS ON COMFORT CARE. ALERT AND ORIENTED X2-3. NO ACUTE OVERNIGHT EVENTS. BED RAILS UP X3. CALL LIGHT WITHIN REACH. BED IN LOWEST POSITION FOR SAFETY.
--- NOTE | 2025-09-18 09:00 | NUR ---
pt was hurting a bit this am, medicated with 10mg roxinol, was effective, pt is a/ox4, pleasant and cooperative with care, follows commands well, lungs are course t/o, on r/a, reps even and unlabored, no cough noted, hrr, bounding, no edema noted, piv to rac, site is clear and patent, has flannery cath draining very dk urine, skin has decub to coccyx, new dressing placed this am, moves arms, general weakness, is a two person two hr turn, keep floated on pillows, lionel, feeds self, needs po meds crushed, call light in reach.
--- NOTE | 2025-09-18 17:57 | NUR ---
pt has been medicated several times for pain, he has slept most of the day, very poor appetite, is apnic at times, no further changes this shift, has been turned and floated through out this shift, call light in reach.
--- NOTE | 2025-09-18 23:28 | NUR ---
CALL TO HOSPITALIST AT 2034 DUE TO LEAKING IV. CALLED AND RECEIVED A NO IV ACCESS ORDER NEEDED DUE TO PT NO RECEIVING ANY MEDS VIA IV AND PT BEING COMFORT CARE.
--- NOTE | 2025-09-19 06:07 | NUR ---
SHIFT SUMMARY, A&OX2-3. ABLE TO MAKE NEEDS KNOWN BUT IS WITHDRAWN. DRESSING ON COCCYX IS C/D/I. PT REPOSITIONED MUCH HE WOULD ALLOW. ODELL CATHETER REMAINS PATENT AND DRAINING VERY MINIMAL AMOUNT OF URINE. PT DENIES PAIN. HE STATES HE IS ANXIOUS TO GO HOME. CURRENTLY RESTING IN BED AT LOWEST POSITION WITH CALL LIGHT WITHIN REACH.
[2025-09-19] MEDS ORDERED: CEFP200 PO (10:02)
== END 2025-09-19 10:35 | disposition hospice, home (50) | DRG 871 ==
LOC: ER 22:13 → ERHOLD 09-14 00:23 → ICUE 09-14 00:23 → MEDS 09-17 02:07 → ENPENDDIS 09-19 09:01 → MEDS 09-19 10:35
PROVIDERS: Student in an Organized Health Care Education/Training Program; ADMIT Internal Medicine
PROC: 3E033XZ Introduction of Vasopressor into Peripheral Vein, Percutaneous Approach (ICD-10-PCS; principal; 2025-09-13)
PROC: 3E03329 Introduction of Other Anti-infective into Peripheral Vein, Percutaneous Approach (ICD-10-PCS; 2025-09-14)
PROC: 30233J1 Transfusion of Nonautologous Serum Albumin into Peripheral Vein, Percutaneous Approach (ICD-10-PCS; 2025-09-14)
DX: A41.9 Sepsis, unspecified organism (principal); E43 Unspecified severe protein-calorie malnutrition; J18.9 Pneumonia, unspecified organism; R65.21 Severe sepsis with septic shock; J96.01 Acute respiratory failure with hypoxia; J69.0 Pneumonitis due to inhalation of food and vomit; N30.00 Acute cystitis without hematuria; Z68.1 Body mass index [BMI] 19.9 or less, adult; N17.9 Acute kidney failure, unspecified; G93.40 Encephalopathy, unspecified; R64 Cachexia; Z51.5 Encounter for palliative care; Z66 Do not resuscitate; E03.9 Hypothyroidism, unspecified; E87.6 Hypokalemia; F03.90 Unspecified dementia, unspecified severity, without behavioral disturbance, psychotic disturbance, mood disturbance, and anxiety; I25.10 Atherosclerotic heart disease of native coronary artery without angina pectoris; D69.6 Thrombocytopenia, unspecified; E83.42 Hypomagnesemia; E83.51 Hypocalcemia; L89.151 Pressure ulcer of sacral region, stage 1; R62.7 Adult failure to thrive; E88.09 Other disorders of plasma-protein metabolism, not elsewhere classified; Z85.118 Personal history of other malignant neoplasm of bronchus and lung; Z98.890 Other specified postprocedural states; Z79.899 Other long term (current) drug therapy; Z88.0 Allergy status to penicillin; Z90.89 Acquired absence of other organs; Z86.73 Personal history of transient ischemic attack (TIA), and cerebral infarction without residual deficits; Z87.891 Personal history of nicotine dependence; Z90.2 Acquired absence of lung [part of]; Z99.81 Dependence on supplemental oxygen
CPT/HCPCS: 36415; 51702; 70450; 71045; 80048; 80053; 80202; 81001; 83605; 83690; 83735; 83880; 84484; 85025; 87040; 87086; 87637; 92610; 93005; 93010; 96365; 96368; 97161; 97530; 99291-25; A9270; J0612; J0692; J0696; J1650; J3373; J3475; J3480; J7030; J7050; P9047